=== PATIENT | female | born 1985 | race Caucasian/White ===

== ENCOUNTER 2019-10-31 18:41 | Emergency (ER) | payer OTHER, SELFPAY ==
[2019-10-31 18:44] VITALS: BP 116/76; PULSE 124; RESP 16; TEMP 36.1; O2SAT 100; BMI 28.3
--- NOTE | 2019-10-31 18:56 | DI.RAD.S_ITS ---
PROCEDURE: XR WRIST RT MIN 3V INDICATIONS: fall, caught self with wrist TECHNIQUE: 3 views of the wrist were acquired. COMPARISON: None. FINDINGS: Bones: Comminuted, intra-articular fracture of the distal radius Soft tissues: No suspicious soft tissue calcifications. IMPRESSION: Comminuted, intra-articular, displaced distal radius fracture. Dictated by: Sarah Menendez MD, PhD on 10/31/2019 at 20:23 Approved by: Sarah Menendez MD, PhD on 10/31/2019 at 20:24
[2019-10-31 18:57] VITALS: PULSE 76
[2019-10-31] MEDS: ONDANSETRON 4 MG/2 ML INJ IV (19:40)
[2019-10-31] MEDS: MORPHINE 4 MG/ML INJ IV (19:41)
[2019-10-31] MEDS: HYDROMORPHONE 1 MG INJ IV ×2 (20:39→21:56)
[2019-10-31] MEDS: LIDOCAINE 1% 20 ML 10 ML INJ (21:23)
[2019-10-31] MEDS: LORazepam 2 MG/ML INJ 0.5 MG IV (21:23)
[2019-10-31] MEDS: LIDOCAINE 1% W/EPI 30 ML (21:57)
--- NOTE | 2019-10-31 22:12 | ED_ITS ---
HPI - Extremity Injury (Upper) General Chief Complaint: Extremity Injury, Upper Stated Complaint: FALL RIGHT HAND INJURY Time Seen by Provider: 10/31/19 18:54 Source: patient and family Mode of arrival: Ambulatory History of Present Illness HPI narrative: Patient here with . Fell off stepladder at home. Doing decorations. Patient is right handed. Complains of injury to the right wrist. Denies any other injuries. Denies does not want a test. complaint: injury to: right and wrist Related Data Previous Rx's Medication Instructions Recorded hydrocodone-acetaminophen [[place]] 1 tab PO Q8H PRN #20 tab 10/31/19 ondansetron 4 mg PO Q8H PRN #10 tab 10/31/19 Allergies Allergy/AdvReac Type Severity Reaction Status Date / Time No Known Drug Allergies Allergy Verified 10/31/19 18:47 Review of Systems Review of Systems Narrative: GENERAL: Denies chills, fatigue, malaise, fever, sweats. HEENT: Denies sinus pain, ear pain, sore throat, difficulty swallowing, dizziness. RESPIRATORY: Denies dyspnea, cough, wheezing, hemoptysis, sputum. CARDIOVASCULAR: Denies chest pain, palpitations, orthopnea, edema, GASTROINTESTINAL: Denies nausea, vomiting, abdominal pain, diarrhea, constipatio n, melena. : Denies dysuria, frequency, incontinence, hematuria, urinary retention. MUSCULOSKELETAL: Complains of joint pain, or bony pain SKIN: Denies rash, skin lesions NEUROLOGIC: Denies weakness, headache, numbness, change in speech, confusion, seizures, incoordination. PSYCHIATRIC: No concerning psychosocial issues. ROS Unobtainable: All systems reviewed & are unremarkable except as noted in HPI and below Patient History Social History Smoking Status: Never smoker Smoking Status: Never smoker alcohol intake frequency: 0-2 drinks per day Substance Use Type: marijuana Exam Narrative Exam Narrative: GENERAL: patient appears stated age. Well-nourished, well- developed patient, in no distress, not toxic HEAD: Atraumatic. Normocephalic. EXTREMITIES: Examination right upper extremity. Nontender elbow and shoulder. Deformity dorsally of the right wrist. Strong radial pulse. Hand and limb is warm soft and pink. Light touch intact to thumb and finger tips. Limited range of motion of the wrist due to pain/deformity. NEURO: AOx4. SKIN: No rash or erythema of visible areas PSYCH: Not anxious, is cooperative Initial Vital Signs Initial Vital Signs: Vital Signs Temperature 97.0 F L 10/31/19 18:44 Pulse Rate 124 H 10/31/19 18:44 Respiratory Rate 16 10/31/19 18:44 Blood Pressure 116/76 10/31/19 18:44 Pulse Oximetry 100 10/31/19 18:44 Procedures Orthopedic Joint Reduction Joint #1: Time Out Performed: Yes Side: right Joint Reduction Location: wrist Analgesia: hematoma block (1% lidocaine with epinephrine, 2 mL) Local Anesthesia: lidocaine 1% and with epi Amount of anesthesic used (mL): 2 Technique used: traction/counter-traction Post-reduction neuro exam: intact Post-reduction vascular: intact Post Reduction X-Ray Obtained: Yes Post Reduction X-Ray Results: other (Improved reduction) Splint Applied: Yes Patient Tolerated Procedure: Well Orthopedic Splinting/Casting Injury #1: Side: right Upper Extremity Injury Location: wrist Upper Extremity Immobilizer: sugar tong splint Post splinting neuro exam: intact Post splinting vascular exam: intact Placed by: Provider Course Course Course Narrative: Patient tolerate pain medications here very well. No altered mental status. Orders Ordered: ED Orders 10/31/19 18:56 XR wrist RT min 3V Stat 10/31/19 22:15 XR wrist RT 2V Stat Discontinued Medications Hydrocodone Bitart/Acetaminophen (Vicodin 5/325 Prepack) 1 bottle MISC SEEINSTR ONE Stop: 10/31/19 22:51 Last Admin: 10/31/19 22:58 Dose: 1 bottle Documented by: KIMO Hydromorphone HCl (Dilaudid) 1 mg IV NOW ONE Stop: 10/31/19 20:36 Last Admin: 10/31/19 20:39 Dose: 1 mg Documented by: DANOLE Hydromorphone HCl (Dilaudid) 1 mg IV NOW ONE Stop: 10/31/19 21:43 Last Admin: 10/31/19 21:56 Dose: 1 mg Documented by: KIMO Lidocaine HCl (Xylocaine 1%) 10 ml INJ NOW ONE Stop: 10/31/19 20:48 Last Admin: 10/31/19 21:23 Dose: 10 ml Documented by: KIMO Lorazepam (Ativan) 0.5 mg IV NOW ONE Stop: 10/31/19 20:48 Last Admin: 10/31/19 21:23 Dose: 0.5 mg Documented by: KIMO Morphine Sulfate (Morphine) 4 mg IV NOW ONE Stop: 10/31/19 19:27 Last Admin: 10/31/19 19:41 Dose: 4 mg Documented by: KIMO Ondansetron HCl (Zofran) 4 mg IV NOW ONE Stop: 10/31/19 19:27 Last Admin: 10/31/19 19:40 Dose: 4 mg Documented by: KIMO Reevaluation(s) Reevaluation #1: Pain improved after a hematoma block. Time: 22:19 Consultations Consultation #1: Spoke with Dr. France, ortho, may give lidocaine with epinephrine for hematoma block. Reduce injury and placed in splint in follow-up in the office Time: 20:41 Consultation #2: s/w dr france, he has reviewed post reduction films. Patient follow-up with clinic Time: 22:47 Vital Signs Vital signs: Vital Signs - 8 hr 10/31/19 18:44 10/31/19 18:57 Temperature 97.0 F L Pulse Rate 124 H Pulse Rate [Right Radial] 76 Respiratory Rate 16 Blood Pressure 116/76 Pulse Oximetry 100 MDM - Extremity Injury (Upper) Differential Diagnosis Differential diagnosis: Likely fracture of wrist Imaging Data Extremity x-ray #1: Radiologist's Impression: [address] [address] XRay Report Signed Patient: Chiara Yarbrough RMR#: [id number] : 1985Acct:[id number] Age/Sex: 34 / FDate of Service: 10/31/19 Loc: ED Accession Number: [id number] Procedure: XR wrist RT min 3V Ordering Provider: Moy Ricardo MD PROCEDURE: XR WRIST RT MIN 3V INDICATIONS: fall, caught self with wrist TECHNIQUE: 3 views of the wrist were acquired. COMPARISON: None. FINDINGS: Bones: Comminuted, intra-articular fracture of the distal radius Soft tissues: No suspicious soft tissue calcifications. IMPRESSION: Comminuted, intra-articular, displaced distal radius fracture. Dictated by: Sarah Menendez MD, PhD on 10/31/2019 at 20:23 Approved by: Sarah Menendez MD, PhD on 10/31/2019 at 20:24 Discharge Plan Departure Patient Disposition: Home Clinical Impression: Fracture of wrist Qualifiers: Encounter type: initial encounter Fracture type: closed Laterality: right Qualified Code(s): S62.101A - Fracture of unspecified carpal bone, right wrist, initial encounter for closed fracture Discharge Date/Time: 10/31/19 23:02 Activity Restrictions/Additional Instructions: No driving or operating machinery while in splint or cast. Use splint for comfort as well. Return if worse or if any questions or concerns or if any numbness and tingling to the hands or fingers or discoloration of the hand or fingers. Called provided orthopedic office on Sunday for office recheck. Informed that the orthopedist is expecting to see you Prescriptions: New hydrocodone-acetaminophen [[place]] 7.5-325 mg tablet 1 tab PO Q8H PRN (Reason: pain) Qty: 20 RF: 0 ondansetron 4 mg tablet,disintegrating 4 mg PO Q8H PRN (Reason: nausea and vomiting) Qty: 10 RF: 0 Referrals: Anuel France MD [Physician] -
--- NOTE | 2019-10-31 22:15 | DI.RAD.S_ITS ---
PROCEDURE: XR WRIST RT 2V INDICATIONS: post reduction TECHNIQUE: 2 views of the wrist were acquired. COMPARISON: [facility], , XR WRIST RT MIN 3V, 10/31/2019, 20:00. FINDINGS: Bones: There is a comminuted, intra-articular fracture of the distal radius, with dorsal angulation of fracture fragments. The fracture alignment is improved compared to the regional radiographs. The overlying casting material limits evaluation of fine detail. Soft tissues: Soft tissue swelling is seen. IMPRESSION: Improved anatomic alignment. Dictated by: Lang Hatfield M.D. on 11/01/2019 at 10:10 Approved by: Lang Hatfield M.D. on 11/01/2019 at 10:11
[2019-10-31] MEDS: HYDROCODONE/ACET 5/325 PREPACK 1 BOTTLE MISC (22:58)
== END 2019-10-31 23:02 | disposition home or self-care (01) ==
PROVIDERS: Emergency Provider Emergency Medicine
DX: S62.101A Fracture of unspecified carpal bone, right wrist, initial encounter for closed fracture (principal); W11.XXXA Fall on and from ladder, initial encounter
CPT/HCPCS: 36415; 73100; 73110; 96374; 96375; 96376; 99284; J1170; J2060; J2270; J2405

== ENCOUNTER → 2019-11-04 10:12 | Outpatient (CLI) | payer OTHER, SELFPAY ==
[2019-11-05 09:30] LABS: COVID19 Sendout Not Detected (Not Detect)
== END ==
PROVIDERS: Visit Provider Physician Assistant
DX: Z11.59 Encounter for screening for other viral diseases (principal)
CPT/HCPCS: 87635

== ENCOUNTER 2019-11-06 14:12 | Day surgery (SDC) | payer OTHER, SELFPAY ==
[2019-11-04 12:32] VITALS: BMI 28.6
[2019-11-06] VITALS (11 sets, daily range): BP systolic 102–125; BP diastolic 55–81; PULSE 75–102; RESP 10–22; TEMP 36.3–37; O2SAT 95–100; BMI 28.6
[2019-11-06] MEDS: LACTATED RINGERS 1,000 ML 42 ML IV (14:46)
--- NOTE | 2019-11-06 16:30 | PM.PREOP ---
Pre-operative Note COVID-19 COVID-19 status: Negative Result date/Date tested (Pos, Neg/Pending): 11/03/19 Interval Note History & Physical reviewed/Exam performed by Physician: Yes Changes to H&P: No
--- NOTE | 2019-11-06 16:34 | SUR.OPER ---
Supine on padded OR bed, head on pillow, arms secured on padded arm boards at <90 degrees abduction, legs uncrossed, safety belt at thigh, tape over blanket over lower legs.
[2019-11-06] MEDS: CEFAZOLIN 2 GM/100 ML FROZ.PIGGY IV (16:44)
[2019-11-06] MEDS: BUPIVACAINE 0.25% W/ EPI 30 ML VIAL INJ (17:04)
[2019-11-06] MEDS: ACETAMINOPHEN IV 1,000 MG/100 ML VIAL 400 MG IV (17:09)
--- NOTE | 2019-11-06 18:07 | P.OP_ITS ---
Operative Date/Time/Diagnoses Date of procedure: 11/06/19 Time of procedure: 17:00 Pre-op diagnosis: Intra-articular distal radius fracture Post-op diagnosis: same Procedure & Clinicians Procedure: Open reduction internal fixation of a right intra-articular distal radius fracture Same procedure as scheduled: Yes Indications: Displaced intra-articular distal radius fracture Surgeon: Nicho Jackson Click Yes if Unassisted: Yes Anesthesia Type: General Operative Notes Findings: Displaced intra-articular distal radius fracture Closure Type: primary Specimen(s): none sent Applied: implant(s) (Arthrex distal radius plate) Estimated Blood Loss (mL): 10 Blood products transfused: none Tourniquet time (min): 64 Procedure in detail: On date of service, patient was met in the holding area where the operative site was signed and witnessed by the OR staff. The surgery was once again discussed with the patient and any remaining questions or concerns were answered to the patient's full satisfaction. Time-out was performed verifying patient's name procedure and operative site. Patient was taken back to the operating theater and placed on the operating table in a supine position. Great care was taken to ensure that all bony prominences were appropriately padded. Well-padded tourniquet was placed up along the upper extremity. Another time-out was performed verifying patient's name, procedure, and operative site. The upper extremity was then prepped and draped in the normal sterile fashion. Esmarch was used to exsanguinate the limb and the tourniquet was turned up to 250 mm of mercury. Fifteen blade was used to expose the distal radius. An incision was made over the FCR tendons. The FCR tendon was retracted and the floor of the tendon was opened with a 15 blade. The FPL tendon and muscle belly was retracted ulnarly giving us good visualization of the pronator quadratus. The pronator quadratus was excised off the distal radius using the 15 blade and then finished with a periosteal elevator. Next the brachia radialis attachment to the radial styloid was released to help with overall reduction. Retractors were placed allowing us good visualization of the distal radius as well as the shaft. A reduction maneuver was performed and a K-wire was placed holding a provisional reduction of the intra-articular distal radius fracture. K-wire was used to reduce the radial column fragment. [place] elevator was used to reduce the ulnar column which had been impacted down causing an articular step-off. There was still a gap between the ulnar column and radial column. Two point reduction forceps was used to reduce the ulnar column to the radial column. C-arm was brought in to verify overall reduction. Once we were satisfied with the overall reduction, a plate was placed and held provisionally with K-wires. C-arm was once again used to verify plate positioning as well as reduction. The plate was then fixated to the distal fragment using locking screws. Lateral C-arm views were used to verify that the screws were not intra-articular or broaching the dorsal cortex. At this point we are able to use the plate to help fine tune the overall reduction. Once we were satisfied with the overall reduction the plate was then secured to the shaft with a combination of locking and nonlocking screws. Final x-rays were obtained. The wound was copiously irrigated and closed in a layered fashion. The wrist and hand were cleaned dried dressed. Patient was placed into a splint and taken to the PACU in stable condition. Complications: none Post-operative Condition: stable Disposition: PACU Plan for aftercare: Once the splint is removed, no restrictions to range of motion.
[2019-11-06] MEDS: fentaNYL 100 MCG/2 ML INJ IV ×5 (18:08→18:59)
[2019-11-06] MEDS: HYDROMORPHONE 2 MG INJ ×4 (18:32→18:51)
[2019-11-06] MEDS: OXYCODONE IR 5 MG TABLET PO ×2 (18:33→19:03)
--- NOTE | 2019-11-06 19:38 | SUR.PHASEII ---
Pt up to br to void, ambulating well gait steady, pt wanting to go home, all dc instructions given to both pt and and both verbalize understanding. Pt in br getting dressed with at her side. Report to norah Pastrana
== END 2019-11-06 19:47 | disposition home or self-care (01) ==
PROVIDERS: Referring Provider Orthopaedic Surgery; Visit Provider Orthopaedic Surgery
PROC: (CPT 25608; principal; 2019-11-06 15:45)
DX: S52.571A Other intraarticular fracture of lower end of right radius, initial encounter for closed fracture (principal); W01.0XXA Fall on same level from slipping, tripping and stumbling without subsequent striking against object, initial encounter; Y93.89 Activity, other specified; J45.909 Unspecified asthma, uncomplicated
CPT/HCPCS: 25608; J0131; J0690; J1100; J1170; J2250; J2405; J2704; J3010